=== PATIENT | female | born 1965 | race Hispanic/Latino ===

== ENCOUNTER 2020-08-19 13:20 | Outpatient (CLI) | payer OTHER ==
--- NOTE | 2020-08-19 15:08 | Mammography Report ---
LEFT DIGITAL DIAGNOSTIC MAMMOGRAM WITH CAD CONVENTIONAL, 08/19/2020 LEFT LIMITED BREAST ULTRASOUND CLINICAL INFORMATION / INDICATION: LEFT BREAST CA C50.412 TECHNIQUE: Digital left mammographic imaging was performed. Limited ultrasound was performed. This ex amination was interpreted with the benefit of Computer-Aided Detection (CAD) analysis. COMPARISON: Bilateral mammography 02/14/20 and left breast ultrasound 03/04/20.. FINDINGS: Breast Density: The breasts are almost entirely fatty. MAMMOGRAPHIC FINDINGS: No dominant mass, suspicious calcifications, or architectural distortion in th e left breast. Minimal benign-appearing nodularity in the left upper outer quadrant anteriorly is sta ble. ULTRASOUND FINDINGS: Targeted ultrasound evaluation was performed of the area of interest. There is a circumscribed oval hypoechoic solid nodule at the 12:00 position 3 cm from the nipple. The nodule measures 4.8 mm in greatest dimension, is parallel, demonstrates no posterior features and demonstrat es no internal vascularity on Doppler exam. The nodule appears significantly smaller than on the prio r study. Additionally, there is a 5.6 mm circumscribed ovoid isoechoic parallel solid nodule at the 1 2:00 position 4 cm from the nipple. Mild posterior shadowing is present. No internal vascularity is s een on Doppler exam. The nodule measured 1.2 cm previously. IMPRESSION: Benign-appearing nodularity in the left breast is significantly smaller sonographically. No mammographic evidence of malignancy. Resumption of routine bilateral yearly screening mammography is recommended in approximately 6 months. Follow up recommendation: Back to schedule. BI-RADS Category 2: Benign. A "normal" or negative report should not discourage follow up or biopsy of a clinically significant f inding. A written summary of these findings will be mailed to the patient. The patient will be entered into a mammography reporting system which will generate a reminder letter for the patient's next appointmen t at the appropriate interval. According to the [employer], yearly mammograms are recommended starting at age 40 and continuing as long as a woman is in good health. Breast MRI is recommended for women with an aimee roximately 20-25% or greater lifetime risk of breast cancer, including women with a strong family his tory of breast or ovarian cancer and women who have been treated for Hodgkin's disease. Signer Name: Alejandro Gonzalez MD Signed: 08/19/2020 3:02 PM Workstation Name: [id number]
== END 2020-08-19 13:21 | disposition home or self-care (01) ==
LOC: SPVWC 13:20
PROVIDERS: ATTEND Surgery
DX: C50.412 Malignant neoplasm of upper-outer quadrant of left female breast (principal); N63.21 Unspecified lump in the left breast, upper outer quadrant

== ENCOUNTER 2021-02-17 13:54 | Outpatient (CLI) | payer OTHER ==
--- NOTE | 2021-02-17 14:58 | Mammography Report ---
DIGITAL SCREENING MAMMOGRAM WITH CAD, 02/17/2021 CLINICAL INFORMATION / INDICATION: Routine screening mammography. SCREENING MAMMO Z12.31 TECHNIQUE: Digital bilateral 2D mammography was obtained in the craniocaudal and mediolateral obliqu e projections. This examination was interpreted with the benefit of Computer-Aided Detection analysis . COMPARISON: 02/14/2020 and 08/19/2020. FINDINGS: Breast Density: The breasts are almost entirely fatty. No dominant mass, suspicious calcifications, or architectural distortion in either breast. IMPRESSION: No mammographic evidence of malignancy. Follow up recommendation: Routine yearly BI-RADS Category 1: Negative. A "normal" or negative report should not discourage follow up or biopsy of a clinically significant f inding. A written summary of these findings will be mailed to the patient. The patient will be entered into a mammography reporting system which will generate a reminder letter for the patient's next appointmen t at the appropriate interval. The [employer] recommends yearly mammograms starting at age 40 and continuing as l eli as a woman is in good health. Breast MRI is recommended for women with an approximate 20-25% or greater lifetime risk of breast cancer, including women with a strong family history of breast or ova og cancer or who have been treated for Hodgkin's disease. Signer Name: Alejandro Gonzalez MD Signed: 02/17/2021 2:54 PM Workstation Name: [id number]
== END 2021-02-17 13:55 | disposition home or self-care (01) ==
LOC: SPVWC 13:54
PROVIDERS: ATTEND Surgery
DX: Z12.31 Encounter for screening mammogram for malignant neoplasm of breast (principal)
CPT/HCPCS: 77067